=== PATIENT | male | born 1960 | race Caucasian/White ===

== ENCOUNTER 2017-07-14 08:29 | Day surgery (SDC) ==
[2017-07-14] MEDS ORDERED: LIDOCAINE 1% 20 ML MDV ID ONE (09:17)
[2017-07-14] MEDS ORDERED: LIDOCAINE HCL 2% LUER-JET ONE (10:24)
[2017-07-14] MEDS ORDERED: VERSED ONE (10:24)
[2017-07-14] MEDS ORDERED: DIPRIVAN 20 ML VIAL IVP ONE (10:24)
[2017-07-14 11:54] VITALS: BP 143/93; TEMP 98
--- NOTE | 2017-07-15 10:22 | OP ---
INDICATIONS FOR PROCEDURE: 57 year old gentleman presents for colonoscopy exam. He has a past history of abnormalis polyp on colonoscopy three years ago. He also presents for Endoscopy evaluation of intermittent dysphagia to solid foods. MEDICATIONS: SEE ANESTHESIA NOTES. PROCEDURE: 1. ENDOSCOPY ESOPHAGEAL BIOPSY, GIBRALTARIAN DILATATION 2. COLONOSCOPY, SNARE POLYPECTOMY REPORT: The risks, benefits, alternatives and limitations were discussed in detail with the patient. Informed consent was obtained. After adequate sedation was achieved, the video endoscope was introduced in the posterior pharynx and esophagus under direct vision and easily advanced down to the second portion of the duodenum. I then slowly withdrew. The duodenal mucosa appeared unremarkable as did the duodenal bulb. The antrum body is relatively unremarkable. The scope was retroflexed to look at the cardia and fundus which was unremarkable. The scope was anteflexed and withdrawn back through the esophagus in the distal esophagus there is a circumferential ring causing mild to moderate stricturing. In the distal midesophagus there is some furrows suggesting possible reflux disease or eosinophilic esophagitis. He had the appearance more of mild eosinophilic esophagitis. Biopsies were obtained from the mid esophagus for histological review. I then advanced the scope back down the gastric lumen I placed the guidewire, I withdrew the scope over the guidewire easily advanced the 54 [place] Dilator. The patient tolerated the procedure well with stable vital signs and pulse oximetry throughout. The patient's bed was turned a digital rectal exam revealed good tone, no masses. The colonoscope was introduced into the rectum and advanced under direct visual guidance to the cecum. The cecum was identified by the appendiceal orifice and IC valve. I then slowly withdrew the scope in circumferential manner and examined the mucosa quite carefully. I looked on the proximal and distal sides of folds and flexures as best as possible. Sent the retroflex scope in the right colon as well as left colon to increase visualization. In the ascending colon there was 4 polyps each ranged in size from 5-7 mm and all were semi-sessile. They were all removed by snare technique and placed in the same pathology jar. There was mild diverticulosis in the sigmoid and in the midsigmoid there was small diminutive 4-5mm semi- pedunculated polyp that I removed by snare technique. On retroflex view of the anal canal shows non engorged internal hemorrhoid veins. The prep was good. No other abnormalities were noted. The withdraw time was 12 minutes and 55 seconds. The patient tolerated the procedure well with stable vital signs and pulse oximetry throughout. IMPRESSION: 1. Distal esophageal stricture, dilated as above 2. Question very mildly eosinophilic esophagitis 3. 5 clonic polyps removed 4. Sigmoid diverticulosis RECOMMENDATIONS: 1. Strict reflux precautions 2. Advise him to cut and chew his food well 3. Going to place him on Omeprazole 20mg QAM for a couple of months 4. We will see him back in the office in 2 months see how he is doing. At that time we will review pathology results and his clinical response and try to decide whether to continue with PPI therapy or just as needed or if there is any other therapy needed. 5. Await colon polyp pathology if everything is benign as aspect suggest a repeat a colonoscopy examination again in three years. CC: Dr. Melecio HUERTAS
== END 2017-07-14 12:05 | disposition home or self-care (01) ==
LOC: SURG 08:29
PROVIDERS: ATTEND Internal Medicine Gastroenterology
DX: Z09 Encounter for follow-up examination after completed treatment for conditions other than malignant neoplasm (principal); Z86.010 Personal history of colon polyps; K20.0 Eosinophilic esophagitis; D12.2 Benign neoplasm of ascending colon; D12.5 Benign neoplasm of sigmoid colon; K22.2 Esophageal obstruction; R13.10 Dysphagia, unspecified; K57.30 Diverticulosis of large intestine without perforation or abscess without bleeding; K64.8 Other hemorrhoids

== ENCOUNTER 2020-02-12 21:30 | Observation (INO) ==
--- NOTE | 2020-02-12 22:49 | ED.PDOC ---
General ED Provider: Dr. CHRISTIANA KAPOOR Chief Complaint: Hypertension Stated Complaint: Comes to the Er after being seen in the clinic 2 days ago for elevated blood pressure. He was given clonidin in the clinic took one tablet in the clinic and later that night. yesterday he was given a prescription of Losartan that he has taken yesterday and today. Blood pressure was still elevated. He also complains of pressure on the chest which was related to the blood pressure. Denies any associated Nausea, Diaeresis or shortness of breath. Time Seen by Physician: 22:06 Mode of Arrival: Walk-In Information Source: Patient and Family Primary Care Provider: NAMITA MARLEY Nursing and Triage Documentation Reviewed and Agree: Yes Does patient meet sepsis criteria?: No System Inflammatory Response Syndrome: Not Applicable Sepsis Protocol: For patient's 13 years and over: Temp is 96.8 and below OR 101 and greater Pulse >90 BPM Resp >20/minute Acutely Altered Mental Status Are patient's symptoms suggestive of a new infection, such as: -Pneumonia -Skin, Soft Tissue -Endocarditis -UTI -Bone, Joint Infection -Implantable Device -Acute Abdominal Infection -Wound Infection -Meningitis -Blood Stream Catheter Infection -Unknown Cardiovascular Complaint Exam Chest Pain Complaint/Exam Onset: Gradual Duration: 3 days Review of Systems Review Of Systems Constitutional: Reports No symptoms Eyes: Reports No symptoms Ears, Nose, Mouth, Throat: Reports No symptoms Respiratory: Reports No symptoms Cardiac: Reports No symptoms GI: Reports No symptoms : Reports No symptoms Musculoskeletal: Reports No symptoms Skin: Reports No symptoms Neurological: Reports No symptoms Endocrine: Reports No symptoms Hematologic/Lymphatic: Reports No symptoms All Other Systems: Reviewed and Negative [facility] Medical History (Updated 02/13/20 @ 01:44 by SCOTT TAY RN) Asthma (Acute) Hyperlipemia (Acute) Kidney stones (Acute) Social History (Updated 02/13/20 @ 01:44 by SCOTT TAY RN) Smoking and tobacco status: Never smoker Household members: spouse and children Number of children: 1 Pets and animals: Yes Water heater temperature set < 120 degrees: Yes Working smoke detector in home: Yes Fire extinguisher in home: Yes Carbon monoxide detector in home: Yes What type of physical activity do you participate in?: walking Physical Exam Physical Exam Appearance: Reports Ill-appearing Ill-appearing: Mild Pain Distress: Mild Eyes: Reports JAVIER, EOMI and Conjunctiva clear ENT: Reports Ears normal, Nose normal and Oropharynx normal Respiratory: Reports Airway patent, Breath sounds clear, Breath sounds equal and Respirations nonlabored Cardiovascular: Reports RRR, Pulses normal, No rub and No murmur GI/: Reports Soft, Nontender, No masses, Bowel sounds normal and No Organomegaly Musculoskeletal: Reports Normal strength, ROM intact, No edema and No calf tenderness Skin: Reports Warm, Dry and Normal color Neurological: Reports Sensation intact, Motor intact, Reflexes intact, Cranial nerves intact, Alert and Oriented Psychiatric: Reports Anxious Re-Evaluation Re-Evaluation Time of Re-Evaluation: 01:14 Status: Improved (pain gone ) Vital Signs Stable: Yes (blood pressure 141/95) Physician Notification Case Discussed Physician Notified: Dr Back Time of Notification: 00:30 (agree to admit to observation) Critical Care Note Critical Care Note Total Time (mins): 45 Course Course Hematology/Chemistry: 02/12/20 22:55 02/12/20 22:55 Orders, Labs, Meds: Lab Review 02/12/20 02/12/20 02/12/20 22:55 22:55 22:55 WBC 10.33 H RBC 5.46 Hgb 16.2 Hct 47.9 MCV 87.7 MCH 29.7 MCHC 33.8 RDW Coeff of Amalia 14.0 Plt Count 219 Immature Gran % (Auto) 0.4 Neut % (Auto) 73.3 Lymph % (Auto) 17.0 Hardy % (Auto) 8.3 Eos % (Auto) 0.4 Baso % (Auto) 0.6 Immature Gran # (Auto) 0.0 Neut # (Auto) 7.6 H Lymph # (Auto) 1.8 Hardy # (Auto) 0.9 Eos # (Auto) 0.0 Baso # (Auto) 0.1 D-Dimer (Manual) 315.83 Sodium 141.5 Potassium 3.42 L Chloride 105.1 Carbon Dioxide 29.2 Anion Gap 10.62 BUN 13.1 Creatinine 0.94 Estimated GFR (MDRD) 82.00 BUN/Creatinine Ratio 13.93 Glucose 121.3 H Calcium 9.25 Total Bilirubin 0.77 AST 27.0 ALT 27.3 Alkaline Phosphatase 88.1 Total Creatine Kinase 133.9 CK-MB (CK-2) 0.610 CK-MB (CK-2) % 0.4500 Troponin I < 0.012 Total Protein 7.17 Albumin 4.12 Globulin 3.05 Albumin/Globulin Ratio 1.35 Orders Category Date Time Status EKG-(ED ONLY) Stat CARDIO 02/12/20 22:46 Completed EKG-(IP & OP ONLY) Routine CARDIO 02/13/20 06:00 Ordered INTAKE & OUTPUT Q8HR CARE 02/13/20 01:07 Completed VITAL SIGNS Q4HR CARE 02/13/20 01:10 Completed REGULAR DIET DIETARY 02/13/20 Breakfast Ordered ED IV/MEDIPORT/POWERPORT .ONCE EMERGENCY 02/12/20 22:45 Active BASIC METABOLIC PANEL DAILY@0600 LAB 02/14/20 06:00 Ordered CBC W/ AUTO DIFF DAILY@0600 LAB 02/13/20 05:15 Ordered CBC W/ AUTO DIFF DAILY@0600 LAB 02/14/20 06:00 Ordered CBC W/ AUTO DIFF Stat LAB 02/12/20 22:55 Completed COMPREHENSIVE METABOLIC PANEL Stat LAB 02/12/20 22:55 Completed CREATINE KINASE Q8H LAB 02/13/20 05:15 Ordered CREATINE KINASE Q8H LAB 02/13/20 11:15 Ordered CREATINE KINASE Stat LAB 02/12/20 22:55 Completed D-DIMER Stat LAB 02/12/20 22:55 Completed TROPONIN I Q8H LAB 02/13/20 05:15 Ordered TROPONIN I Q8H LAB 02/13/20 11:15 Ordered TROPONIN I Stat LAB 02/12/20 22:55 Completed 0.9 % Sodium Chloride [Saline Flush] MEDS 02/12/20 22:45 Active 1 syr IVF PRN PRN Acetaminophen [Tylenol] MEDS 02/13/20 01:07 Active 650 mg PO Q4H PRN Hydralazine HCl [Apresoline] MEDS 02/13/20 01:12 Active 25 mg PO ONCE PRN Morphine Sulfate [Morphine 2 mg/ml Syringe] MEDS 02/13/20 01:07 Active 2 mg IVP Q4H PRN Ondansetron HCl/Pf [Zofran 4 mg/2 ml] MEDS 02/13/20 01:07 Active 4 mg IVP Q6H PRN RESUSCITATION STATUS Routine OTHERS 02/13/20 01:07 Ordered CHEST, 2 VIEWS PA & LAT Stat RADS 02/12/20 22:51 Completed Medications Generic Name Dose Route Start Last Admin Trade Name Freq PRN Reason Stop Dose Admin Acetaminophen 650 mg 02/13/20 01:07 Tylenol PO Q4H PRN fever or mild pain Hydralazine HCl 25 mg 02/13/20 01:12 Apresoline PO 02/14/20 01:11 ONCE PRN Blood pressure >220/110 Losartan Potassium 50 mg 02/13/20 09:00 Cozaar PO DAILY FLACO Morphine Sulfate 2 mg 02/13/20 01:07 Morphine 2 Mg/Ml Syringe IVP Q4H PRN Severe Pain Ondansetron HCl 4 mg 02/13/20 01:07 Zofran 4 Mg/2 Ml IVP Q6H PRN Nausea / Vomiting Simvastatin 40 mg 02/13/20 21:00 Zocor PO BEDTIME FLACO Sodium Chloride 1 syr 02/12/20 22:45 Saline Flush IVF PRN PRN To flush IV Vital Signs: Temp Pulse Resp BP Pulse Ox 02/12/20 23:45 80 141/95 H 98 02/12/20 22:05 99 F 106 H 20 165/103 H 97 MARIIA Risk Score MARIIA Risk Score: Risk Score Odds of by 30D 0 0.1 (0.1-0.2) 1 0.3 (0.2-0.3) 2 0.4 (0.3-0.5) 3 0.7 (0.6-0.9) 4 1.2 (1.0-1.5) 5 2.2 (1.9-2.6) 6 3.0 (2.5-3.6) 7 4.8 (3.8-6.1) Discharge Plan Discharge Patient Disposition: PLACED OBSERVATION Discharge Problem: Chest pain at rest, Hypertensive urgency ED Provider: CHRISTIANA KAPOOR Condition: Stable Discharge Date/Time: 02/13/20 01:30
[2020-02-12 22:58] LABS: HEMATOCRIT 47.9 % (42.0-52.0)
--- NOTE | 2020-02-12 23:23 | DI ---
EXAM: PA and lateral views of the chest. HISTORY: Chest pain. FINDINGS: The bones are unremarkable. The cardiac silhouette and pulmonary vasculature are within normal limits. The costophrenic angles are clear. No infiltrate or consolidation. Impression: No acute cardiopulmonary disease.
[2020-02-13] MEDS ORDERED: MORPHINE 2 MG/ML SYRINGE IVP PRN (01:07)
[2020-02-13] MEDS ORDERED: TYLENOL PO PRN (01:07)
[2020-02-13] MEDS ORDERED: ZOFRAN 4 MG/2 ML IVP PRN (01:07)
[2020-02-13] MEDS ORDERED: APRESOLINE PO PRN (01:12)
[2020-02-13 01:51] VITALS: BMI 23.7
[2020-02-13 05:11] LABS: HEMATOCRIT 47.3 % (42.0-52.0)
[2020-02-13] MEDS ORDERED: COZAAR PO SCH (09:00)
[2020-02-13 14:24] VITALS: BP 143/85; TEMP 98.3
[2020-02-13] MEDS ORDERED: ZOCOR PO SCH (21:00)
== END 2020-02-13 17:55 | disposition home or self-care (01) ==
LOC: ED 22:01 → MEDSURG B 22:01
PROVIDERS: ADMIT Family Medicine; ATTEND Family Medicine